=== PATIENT | male | born 1975 | race Two or more races ===

== ENCOUNTER 2023-12-15 01:14 | Inpatient (IN) | payer MEDICARE, OTHER ==
[~2023-12-15] VITALS: Ht 167.6 cm; Wt 72.1 kg
[2023-12-15 01:45] LABS: BASOPHILS % (AUTO) 0.5 % (0.0-2.0); EOSINOPHILS % (AUTO) 0.1 % (0.0-6.0); HEMATOCRIT 44 % (39-51); HEMOGLOBIN 15.3 g/dL (13.5-17.5); LYMPHOCYTES # (AUTO) 0.4 K/uL (0.8-4.8); LYMPHOCYTES % (AUTO) 4.8 % (20.0-44.0); MEAN CORPUSCULAR HEMOGLOBIN 31 PG (26.0-33.0); MEAN CORPUSCULAR HGB CONC 35 g/dl (31.0-36.0); MEAN CORPUSCULAR VOLUME 90 fL (80-96); MONOCYTES # (AUTO) 0.7 K/uL (0.1-1.30); MONOCYTES % (AUTO) 8.8 % (2.0-12.0); NEUTROPHILS # (AUTO) 6.6 K/uL (1.8-8.9); NEUTROPHILS % (AUTO) 85.8 % (43.0-81.0); PLATELET COUNT (AUTO) 103 K/uL (150-450); RED CELL DISTRIBUTION WIDTH 14.1 % (11.5-15.0); WHITE BLOOD COUNT (AUTO) 7.7 K/uL (4.3-11.0)
[2023-12-15 01:55] LABS: CALCIUM, SERUM 8.5 mg/dL (8.5-10.1); CARBON DIOXIDE 27 mmol/L (21-32); CHLORIDE 100 mmol/L (98-107); CREATININE 0.7 mg/dL (0.6-1.3); GLUCOSE 145 mg/dL (74-106); POTASSIUM 3.1 mmol/L (3.5-5.1); SODIUM SERUM 135 mmol/L (136-145); UREA NITROGEN, BLOOD 14 mg/dL (7-18)
[2023-12-15 02:03] LABS: ALANINE AMINOTRANSFERASE 47 U/L (12-78); ALBUMIN 3.6 g/dL (3.4-5.0); ALCOHOL, BLOOD < 3 mg/dL (0-10); ALKALINE PHOSPHATASE 85 U/L (46-116); ASPARTATE AMINOTRANSFERASE 23 U/L (15-37); BILIRUBIN,DIRECT 0.3 mg/dL (0.0-0.2)
[2023-12-15 02:30] LABS: BILIRUBIN,TOTAL 1.5 mg/dL (0.2-1.0); TOTAL PROTEIN, SERUM 7.1 g/dL (6.4-8.2)
[2023-12-15] MEDS ORDERED: POTASSIUM CHLORIDE 20 MEQ TAB.PRT.SR PO ONE ×2 (04:58→05:00)
[2023-12-15] MEDS ORDERED: ONDANSETRON HCL/PF 4 MG/2 ML VIAL IV ONE (05:00)
[2023-12-15] MEDS ORDERED: ONDANSETRON HCL/PF 4 MG/2 ML VIAL ONE (05:06)
[2023-12-15] MEDS ORDERED: CITRUCEL PO (09:25)
[2023-12-15] MEDS ORDERED: IBUP-1955 PO (09:25)
[2023-12-15] MEDS ORDERED: CETI-108 PO (09:25)
[2023-12-15] MEDS ORDERED: HYDR28.32 TP (09:25)
[2023-12-15] MEDS ORDERED: TRIA80OI TP (09:25)
[2023-12-15] MEDS ORDERED: ERGO500093 PO (09:25)
[2023-12-15] MEDS ORDERED: KETO10TA2 PO (09:25)
[2023-12-15] MEDS ORDERED: ATOR10TA GT (09:25)
[2023-12-15] MEDS ORDERED: FAMO20TA8 PO (09:25)
[2023-12-15] MEDS ORDERED: POLY15DR40 EACHEYE (09:25)
[2023-12-15] MEDS ORDERED: ESCI10TA PO (09:25)
[2023-12-15] MEDS ORDERED: HYDR-500 PO (09:25)
[2023-12-15] MEDS ORDERED: ZINC50TA65 PO (09:25)
[2023-12-15 10:49] VITALS: BP 148/82; TEMP 97.8; O2SAT 99
== END 2023-12-15 10:41 | disposition home or self-care (01) | DRG 66 ==
LOC: ER 01:16 → TRANSITION 05:33
PROVIDERS: ADMIT Nurse Practitioner Acute Care; ATTEND Nurse Practitioner Acute Care
DX: I60.9 Nontraumatic subarachnoid hemorrhage, unspecified (principal); G40.909 Epilepsy, unspecified, not intractable, without status epilepticus; F79 Unspecified intellectual disabilities; E87.6 Hypokalemia; Z20.822 Contact with and (suspected) exposure to COVID-19; Z79.899 Other long term (current) drug therapy
CPT/HCPCS: 36415; 70450-TC; 71045-TC; 80048-TC; 80076-TC; 82962-TC; 83690-TC; 84484-TC; 85025-TC; G0378; G0480; J2405